=== PATIENT | male | born 2000 | race Caucasian/White ===

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

== ENCOUNTER → 2020-03-12 | Outpatient (CLI) | payer OTHER ==
--- NOTE | 2020-03-12 19:09 | US ---
EXAMINATION TYPE: US scrotum with doppler. DATE OF EXAM: 03/12/2020 COMPARISON: NONE CLINICAL HISTORY: 19-year-old male N45.1 epididymitis. Pain x 3 weeks. TECHNIQUE: Grayscale and color Doppler Duplex imaging performed of the scrotum. FINDINGS: EXAM MEASUREMENTS: TESTICLES: Right Testicle: 5.1 x 3.0 x 2.6 cm Left Testicle: 5.0 x 2.9 x 2.7 cm EPIDIDYMIS HEAD: Right Epididymis: 0.8 x 1.4 x 1.6 cm. Tiny 3 mm complex area probably a tiny spermatocele. Left Epididymis: 0.7 x 1.0 x 0.8 cm. Difficult to visualize clearly. Doppler performed to assess for testicular vascularity; bilateral color flow and waveforms are seen. Presence of hydroceles: Right measures 2.0 x 0.9 x 1.1 cm. Left measures 1.0 x 1.3 x 1.5 cm. Presence of varicoceles: None seen. Skin thickness measures 10 mm. IMPRESSION: 1. Scrotal skin thickening, edema versus cellulitis. 2. Small bilateral hydroceles, right greater than left. 3. No sonographic evidence for testicular torsion. No abnormal hyperemia or staci heterogeneity of th e epididymis to clearly indicate epididymitis at this time.
== END | disposition home or self-care (01) ==
LOC: RADUSWWP 16:56
PROVIDERS: ATTEND Family Medicine
DX: R23.4 Changes in skin texture (principal); N43.3 Hydrocele, unspecified; N45.1 Epididymitis
CPT/HCPCS: 76870; 93975

== ENCOUNTER → 2020-07-10 | Outpatient (CLI) | payer OTHER ==
--- NOTE | 2020-07-10 23:30 | XR ---
EXAMINATION TYPE: XR Hip Complete RT DATE OF EXAM: 07/10/2020 CLINICAL HISTORY: Right hip pain TECHNIQUE: AP and frogleg views of the right hip are obtained. COMPARISON: None. FINDINGS: There is no acute fracture/dislocation evident in the right hip. The joint space in the r ight hip appears within normal limits. There is approximately 5 mm periosteal elevation along the rig ht lateral upper femur and this could be due to effusion or hematoma. Please correlate with history o f trauma or fall. Follow-up x-rays of the right hip is recommended.. IMPRESSION: Effusion versus hematoma along the lateral proximal right femoral shaft may be related tr auma. Please correlate clinically. Follow-up x-rays is recommended.
--- NOTE | 2020-07-10 23:35 | XR ---
EXAMINATION TYPE: XR sacroiliac joint comp BILAT DATE OF EXAM: 07/10/2020 COMPARISON: None. HISTORY: Right hip pain 4 views of the pelvis/sacroiliac joints were obtained. Images demonstrate no evidence of fracture or dislocation. No significant hip joint space narrowing s een. Sacroiliac joints are within normal limits. IMPRESSION: 1. No acute fracture.
--- NOTE | 2020-07-11 07:39 | XR ---
EXAMINATION TYPE: XR knee complete RT DATE OF EXAM: 07/10/2020 CLINICAL HISTORY: pain TECHNIQUE: Three views of the right knee are obtained. COMPARISON: None. FINDINGS: There is no acute fracture/dislocation. The tri-compartment joint spaces appear within no rmal limits. The overlying soft tissue appears unremarkable. IMPRESSION: There is no acute fracture or dislocation.ICD 10 NO FRACTURE, INITIAL EVALUATION
== END | disposition home or self-care (01) ==
LOC: RADXRMAIN 15:51
PROVIDERS: ATTEND Family Medicine
DX: M25.551 Pain in right hip (principal); M25.561 Pain in right knee
CPT/HCPCS: 72202; 73502

== ENCOUNTER → 2022-05-26 | Outpatient (CLI) | payer OTHER ==
--- NOTE | 2022-05-26 15:40 | XR ---
EXAMINATION TYPE: XR ankle complete LT DATE OF EXAM: 05/26/2022 CLINICAL HISTORY: Pain after recent fall injury. TECHNIQUE: Frontal, lateral and oblique images of the left ankle are obtained. COMPARISON: None. FINDINGS: There is no acute fracture/dislocation evident in the left ankle. The ankle mortise appea rs within normal limits. The overlying soft tissue appears unremarkable. IMPRESSION: There is no acute fracture or dislocation in the left ankle.
== END | disposition home or self-care (01) ==
LOC: RADXRMAIN 15:19
PROVIDERS: ATTEND Family Medicine
DX: M25.572 Pain in left ankle and joints of left foot (principal)

== ENCOUNTER 2023-03-20 12:47 | Emergency (ER) | payer BC, OTHER ==
[2023-03-20 13:33] VITALS: BP 103/61; PULSE 79; RESP 20; TEMP 97.9
--- NOTE | 2023-03-20 13:45 | XR ---
Left foot. HISTORY: Pain following trauma. COMPARISON: None TECHNIQUE: 3 views left foot were obtained. There is a nondisplaced fracture of the distal metaphysis of the fifth metatarsal. The fracture does not appear to involve the articular surface. The remaining osseous structures are intact. There is no soft tissue abnormality. IMPRESSION: Nondisplaced fracture of the fifth metatarsal.
--- NOTE | 2023-03-20 14:07 | ED ---
Lower Extremity Injury HPI - General Chief Complaint: Extremity Injury, Lower Stated Complaint: L foot injury Time Seen by Provider: 03/20/23 13:19 Source: patient, family, RN notes reviewed Mode of arrival: wheelchair Limitations: no limitations - History of Present Illness Initial Comments: 22-year-old male presents emergency Department chief complaint of left foot injury. Patient states he misstepped states he rolled IV has pain along the lateral portion by his fifth digit of his left foot. - Related Data Home Medications Medication Instructions Recorded Confirmed Albuterol Sulfate [Proair Hfa] 1 - 2 puff INHALATION Q6HR PRN 05/16/14 06/28/15 Cetirizine HCl [Zyrtec] 10 mg PO DAILY 05/16/14 06/28/15 Melatonin 3 mg PO HS 05/16/14 06/28/15 Mometasone/Formoterol [Dulera 200 2 puff INHALATION BID 05/16/14 06/28/15 Mcg/5 Mcg Inhaler] Montelukast Chew [Singulair Chew] 20 mg PO DAILY 05/16/14 06/28/15 Triamcinolone Acetonide [Nasacort] 1 spray NASAL DAILY 05/16/14 06/28/15 raNITIdine HCL [Zantac] 150 mg PO BID 05/16/14 06/28/15 Multivitamins, Thera [Multivitamin] 1 tab PO DAILY 06/28/15 06/28/15 Allergies Allergy/AdvReac Type Severity Reaction Status Date / Time peanut Allergy Nausea & Verified 10/19/21 03:41 Vomiting & Diarrhea Review of Systems ROS Statement: Those systems with pertinent positive or pertinent negative responses have been documented in the HPI. ROS Other: All systems not noted in ROS Statement are negative. Past Medical History Past Medical History: Asthma, GERD/Reflux Additional Past Medical History / Comment(s): SEASONAL ALLERGIES History of Any Multi-Drug Resistant Organisms: MRSA Date of last positivie culture/infection: 04/2014 MDRO Source:: right lung Past Surgical History: Appendectomy, Ear Surgery Additional Past Surgical History / Comment(s): lung biopsy Past Psychological History: ADD/ADHD Smoking Status: Never smoker Past Alcohol Use History: None Reported Past Drug Use History: None Reported General Exam Limitations: no limitations General appearance: alert, in no apparent distress Head exam: Present: atraumatic, normocephalic, normal inspection Respiratory exam: Present: normal lung sounds bilaterally. Absent: respiratory distress, wheezes, rales, rhonchi, stridor Cardiovascular Exam: Present: regular rate, normal rhythm, normal heart sounds. Absent: systolic murmur, diastolic murmur, rubs, gallop, clicks Extremities exam: Present: other (Left foot tenderness to the distal fifth metatarsal region, mild swelling noted) Course Vital Signs 03/20/23 13:16 Temperature 97.9 F Pulse Rate 79 Respiratory 20 Rate Blood Pressure 103/61 O2 Sat by Pulse 98 Oximetry Procedures - Orthopedic Splinting/Casting Injury #1 Side: left Lower Extremity Injury Location: short leg, foot Lower Extremity Immobilizer: posterior splint, synthetic pre-padded splint Other Orthopedic Equipment: crutches Medical Decision Making - Medical Decision Making Was pt. sent in by a medical professional or institution ([facility], MANAGER CULTURE, urgent care, hospital, or half-way...) When possible be specific @ -No Did you speak to anyone other than the patient for history (EMS, parent, family, police, friend...)? What history was obtained from this source @ -No Did you review nursing and triage notes (agree or disagree)? Why? @ -I reviewed and agree with nursing and triage notes Were old charts reviewed (outside hosp., previous admission, EMS record, old EKG, old radiological studies, urgent care reports/EKG's, half-way records)? Report findings @ -No old charts were reviewed Differential Diagnosis (chest pain, altered mental status, abdominal pain women, abdominal pain men, vaginal bleeding, weakness, fever, dyspnea, syncope, headache, dizziness, GI bleed, back pain, seizure, CVA, palpatations, mental health, musculoskeletal)? @ -Left foot sprain, foot fracture EKG interpreted by me (3pts min.). @ -None X-rays interpreted by me (1pt min.). @ -X-ray left foot showing distal fifth metatarsal fracture CT interpreted by me (1pt min.). @ -None done U/S interpreted by me (1pt. min.). @ -None done What testing was considered but not performed or refused? (CT, X-rays, U/S, labs)? Why? @ -None What meds were considered but not given or refused? Why? @ -None Did you discuss the management of the patient with other professionals (professionals i.e. , PA, MANAGER CULTURE, lab, RT, psych nurse, rn social services, custom wood stair builder, teacher, personal banking officer, shelter case manager)? Give summary @ -No Was smoking cessation discussed for >3mins.? @ -No Was critical care preformed (if so, how long)? @ -No Were there social determinants of health that impacted care today? How? (Homelessness, low income, unemployed, alcoholism, drug addiction, transportation, low edu. Level, literacy, decrease access to med. care, usp, rehab)? @ -No Was there de-escalation of care discussed even if they declined (Discuss DNR or withdrawal of care, Hospice)? DNR status @ -No What co-morbidities impacted this encounter? (DM, HTN, Smoking, COPD, CAD, Cancer, CVA, ARF, Chemo, Hep., AIDS, mental health diagnosis, sleep apnea, mor bid obesity)? @ -None Was patient admitted / discharged? Hospital course, mention meds given and route, prescriptions, significant lab abnormalities, going to OR and other pertinent info. @ -[Discharge patient will foot was splinted after x-ray shows fifth metatarsal fracture. Patient was given crutches will follow-up with orthopedics. Undiagnosed new problem with uncertain prognosis? @ -No Drug Therapy requiring intensive monitoring for toxicity (Heparin, Nitro, Insulin, Cardizem)? @ -No Were any procedures done? @ -No Diagnosis/symptom? @ -[Left foot fracture Acute, or Chronic, or Acute on Chronic? @ -Acute Uncomplicated (without systemic symptoms) or Complicated (systemic symptoms)? @ -[Uncomplicated Side effects of treatment? @ -No Exacerbation, Progression, or Severe Exacerbation? @ -No Poses a threat to life or bodily function? How? (Chest pain, [place], [place], pneumonia, PE, COPD, DKA, ARF, appy, cholecystitis, CVA, Diverticulitis, Homicidal, Suicidal, threat to staff... and all critical care pts) @ -No Disposition Clinical Impression: Nondisplaced fracture of fifth left metatarsal bone Disposition: HOME SELF-CARE Condition: Stable Instructions (If sedation given, give patient instructions): Foot Fracture in Adults (ED) Additional Instructions: Please return to the Emergency Department if symptoms worsen or any other concerns. Is patient prescribed a controlled substance at d/c from ED?: No Referrals: Tim Haynes DO [Primary Care Provider] - 1-2 days Alessio Abbasi MD [STAFF PHYSICIAN] - 1-2 days Time of Disposition: 14:07
== END 2023-03-20 14:28 | disposition home or self-care (01) ==
LOC: EC 12:47
DX: S92.355A Nondisplaced fracture of fifth metatarsal bone, left foot, initial encounter for closed fracture (principal); J45.909 Unspecified asthma, uncomplicated; K21.9 Gastro-esophageal reflux disease without esophagitis; Z79.51 Long term (current) use of inhaled steroids; Z79.899 Other long term (current) drug therapy; Z91.018 Allergy to other foods; W18.49XA Other slipping, tripping and stumbling without falling, initial encounter
CPT/HCPCS: 29515; 99283

== ENCOUNTER 2023-08-10 16:47 | Emergency (ER) | payer BC ==
[2023-08-10 17:29] VITALS: RESP 18; TEMP 98.3
--- NOTE | 2023-08-10 17:43 | ED ---
General Adult HPI - General Source: patient, RN notes reviewed Mode of arrival: ambulatory Limitations: no limitations <Selene Steward - Last Filed: 08/10/23 17:41> - General Source: RN notes reviewed <Mark Anthony Huggins - Last Filed: 08/10/23 22:54> - General Chief complaint: Chest Pain Stated complaint: Chest pain, cough Time Seen by Provider: 08/10/23 17:02 - History of Present Illness Initial comments: Quick noteis a 23-year-old male presents emergency room chief complaint of chest pain over the past month. States that this pain has been persistent now for the past week. States that the pain is increased with coughing. He denies dysuria or fevers, palpitations, dizziness, lightheadedness. Denies history of blood clots or clotting disorders. States that he has been very anxious over the past few weeks as well. (Selene Steward) 23-year-old male presenting to the ED with chief complaint of chest pain. Has been ongoing for the past month however over the past week he reports pain has become more frequent in nature. Pain affects the left side of his chest. Pain does not radiate. States pain is worse with movement and cough. Denies fever or chills, congestion, shortness of breath, cough, sore throat. Denies family history of early cardiac . Is not a smoker. No other complaints at this time. (Mark Anthony Huggins) - Related Data Home Medications Medication Instructions Recorded Confirmed Albuterol Sulfate [Proair Hfa] 1 - 2 puff INHALATION Q6HR PRN 05/16/14 06/28/15 Cetirizine HCl [Zyrtec] 10 mg PO DAILY 05/16/14 06/28/15 Melatonin 3 mg PO HS 05/16/14 06/28/15 Mometasone/Formoterol [Dulera 200 2 puff INHALATION BID 05/16/14 06/28/15 Mcg/5 Mcg Inhaler] Montelukast Chew [Singulair Chew] 20 mg PO DAILY 05/16/14 06/28/15 Triamcinolone Acetonide [Nasacort] 1 spray NASAL DAILY 05/16/14 06/28/15 raNITIdine HCL [Zantac] 150 mg PO BID 05/16/14 06/28/15 Multivitamins, Thera [Multivitamin] 1 tab PO DAILY 06/28/15 06/28/15 Allergies Allergy/AdvReac Type Severity Reaction Status Date / Time peanut Allergy Nausea & Verified 10/19/21 03:41 Vomiting & Diarrhea Review of Systems ROS Other: All systems not noted in ROS Statement are negative. <Selene Steward - Last Filed: 08/10/23 17:41> ROS Other: All systems not noted in ROS Statement are negative. <Mark Anthony Huggins - Last Filed: 08/10/23 22:54> ROS Statement: Those systems with pertinent positive or pertinent negative responses have been documented in the HPI. Past Medical History Past Medical History: Asthma, GERD/Reflux Additional Past Medical History / Comment(s): SEASONAL ALLERGIES History of Any Multi-Drug Resistant Organisms: MRSA Date of last positivie culture/infection: 04/2014 MDRO Source:: right lung Past Surgical History: Appendectomy, Ear Surgery Additional Past Surgical History / Comment(s): lung biopsy Past Psychological History: ADD/ADHD Smoking Status: Never smoker Past Alcohol Use History: None Reported Past Drug Use History: None Reported <Selene Steward - Last Filed: 08/10/23 17:41> General Exam Limitations: no limitations <Selene Steward - Last Filed: 08/10/23 17:41> General appearance: alert, in no apparent distress Eye exam: Present: normal appearance Neck exam: Present: normal inspection Respiratory exam: Present: normal lung sounds bilaterally Cardiovascular Exam: Present: regular rate, normal rhythm GI/Abdominal exam: Present: soft, normal bowel sounds. Absent: distended, tenderness, guarding, rebound, rigid Neurological exam: Present: alert, oriented X3 Skin exam: Present: warm, dry <Mark Anthony Huggins - Last Filed: 08/10/23 22:54> - General Exam Comments Initial Comments: Visual Physical Exam Vital signs reviewed General: Well-appearing, nontoxic, no acute distress. Head: Normocephalic, atraumatic Eyes: PERRLA, EOMI ENT: Airway patent Chest: Nonlabored breathing Skin: No visual rash, normal skin tone Neuro: Alert and oriented 3 Musculoskeletal: No gross abnormalities (Selene Steward) Course Vital Signs 08/10/23 17:26 Temperature 98.3 F Pulse Rate 77 Respiratory 18 Rate Blood Pressure 135/78 O2 Sat by Pulse 98 Oximetry Medical Decision Making <Selene Steward - Last Filed: 08/10/23 17:41> - Lab Data Result diagrams: 08/10/23 18:29 08/10/23 18:29 <Mark Anthony Huggins - Last Filed: 08/10/23 22:54> - Medical Decision Making I completed the quick note portion of this chart signed Selene Steward PA-C (Selene Steward) Was pt. sent in by a medical professional or institution (VARINDER Harden, PAYROLL CLERK, urgent care, hospital, or group home...) When possible be specific @ -No Did you speak to anyone other than the patient for history (EMS, parent, family, police, friend...)? What history was obtained from this source @ -No Did you review nursing and triage notes (agree or disagree)? Why? @ -I reviewed and agree with nursing and triage notes Were old charts reviewed (outside hosp., previous admission, EMS record, old EKG, old radiological studies, urgent care reports/EKG's, group home records)? Report findings @ -No old charts were reviewed Differential Diagnosis (chest pain, altered mental status, abdominal pain women, abdominal pain men, vaginal bleeding, weakness, fever, dyspnea, syncope, headache, dizziness, GI bleed, back pain, seizure, CVA, palpatations, mental health, musculoskeletal)? @ -Differential Chest Pain: Stable Angina, Unstable Angina, STEMI, NSTEMI Aortic Dissection, Pneumothorax, Musculoskeletal, Esophageal Spasm GERD, Cholecystitis, Pancreatitis, Zoster, this is not meant to be an all-inclusive list. EKG interpreted by me (3pts min.). @ -EKG interpreted me showing diffuse ST elevations at a rate of 85 bpm, [place] 158, QRS 103, QT/QTc 344/387. ST elevations likely early repolarization. X-rays interpreted by me (1pt min.). @ -Chest x-ray interpreted me which revealed no evidence of acute finding. CT interpreted by me (1pt min.). @ -None done U/S interpreted by me (1pt. min.). @ -None done What testing was considered but not performed or refused? (CT, X-rays, U/S, labs)? Why? @ -None What meds were considered but not given or refused? Why? @ -None Did you discuss the management of the patient with other professionals (professionals i.e. , PA, PAYROLL CLERK, lab, RT, psych nurse, case management social worker, java web engineer, teacher, business enterprise officer, case repairer)? Give summary @ -No Was smoking cessation discussed for >3mins.? @ -No Was critical care preformed (if so, how long)? @ -No Were there social determinants of health that impacted care today? How? (Homele ssness, low income, unemployed, alcoholism, drug addiction, transportation, low edu. Level, literacy, decrease access to med. care, senior care, rehab)? @ -No Was there de-escalation of care discussed even if they declined (Discuss DNR or withdrawal of care, Hospice)? DNR status @ -No What co-morbidities impacted this encounter? (DM, HTN, Smoking, COPD, CAD, Cancer, CVA, ARF, Chemo, Hep., AIDS, mental health diagnosis, sleep apnea, morbid obesity)? @ -None Was patient admitted / discharged? Hospital course, mention meds given and route, prescriptions, significant lab abnormalities, going to OR and other pertinent info. @ -Discharge 23-year-old male presented to the ED with complaints of chest pain for the past month. Laboratory studies reviewed. Labs including CBC CMP unremarkable. D- dimer less than 0.17. Troponin x 2 undetectable. EKG showed a normal sinus rhythm with a repolarization. At this time patient has a heart score of 1. Unlikely cardiac in nature. Discharged home in stable condition with instructions to closely follow-up with his PCP. Discussed return precautions with patient who verbalized agreement. Undiagnosed new problem with uncertain prognosis? @ -No Drug Therapy requiring intensive monitoring for toxicity (Heparin, Nitro, Insulin, Cardizem)? @ -No Were any procedures done? @ -No Diagnosis/symptom? @ -Chest pain Acute, or Chronic, or Acute on Chronic? @ -Acute Uncomplicated (without systemic symptoms) or Complicated (systemic symptoms)? @ -Uncomplicated Side effects of treatment? @ -No Exacerbation, Progression, or Severe Exacerbation? @ -No Poses a threat to life or bodily function? How? (Chest pain, [place], [place], pneumonia, PE, COPD, DKA, ARF, appy, cholecystitis, CVA, Diverticulitis, Homicidal, Suicidal, threat to staff... and all critical care pts) @ -No (Mark Anthony Huggins) - Lab Data Lab Results 08/10/23 08/10/23 08/10/23 Range/Units 18:29 18:29 18:29 WBC 8.2 (3.8-10.6) k/uL RBC 5.36 (4.30-5.90) m/uL Hgb 16.1 (13.0-17.5) gm/dL Hct 47.3 (39.0-53.0) % MCV 88.2 (80.0-100.0) fL MCH 30.1 (25.0-35.0) pg MCHC 34.1 (31.0-37.0) g/dL RDW 12.4 (11.5-15.5) % Plt Count 310 (150-450) k/uL MPV 7.3 Neutrophils % 65 % Lymphocytes % 24 % Monocytes % 6 % Eosinophils % 3 % Basophils % 1 % Neutrophils # 5.4 (1.3-7.7) k/uL Lymphocytes # 1.9 (1.0-4.8) k/uL Monocytes # 0.5 (0-1.0) k/uL Eosinophils # 0.2 (0-0.7) k/uL Basophils # 0.0 (0-0.2) k/uL PT 10.9 (10.0-12.5) sec INR 1.0 (<1.2) APTT 27.8 (22.0-30.0) sec D-Dimer <0.17 (<0.60) mg/L FEU Sodium 137 (137-145) mmol/L Potassium 4.3 (3.5-5.1) mmol/L Chloride 101 (98-107) mmol/L Carbon Dioxide 29 (22-30) mmol/L Anion Gap 7 mmol/L BUN 13 (9-20) mg/dL Creatinine 0.74 (0.66-1.25) mg/dL Est GFR (CKD-EPI)AfAm >90 (>60 ml/min/1.73 sqM) Est GFR (CKD-EPI)NonAf >90 (>60 ml/min/1.73 sqM) Glucose 83 (74-99) mg/dL Calcium 9.5 (8.4-10.2) mg/dL Magnesium 2.0 (1.6-2.3) mg/dL Total Bilirubin 1.2 (0.2-1.3) mg/dL AST 26 (17-59) U/L ALT 36 (4-49) U/L Alkaline Phosphatase 83 (38-126) U/L Troponin I (0.000-0.034) ng/mL Total Protein 7.3 (6.3-8.2) g/dL Albumin 4.9 (3.5-5.0) g/dL Urine Color Urine Appearance (Clear) Urine pH (5.0-8.0) Ur Specific [place] (1.001-1.035) Urine Protein (Negative) Urine Glucose (UA) (Negative) Urine Ketones (Negative) Urine Blood (Negative) Urine Nitrite (Negative) Urine Bilirubin (Negative) Urine Urobilinogen (<2.0) mg/dL Ur Leukocyte Esterase (Negative) 08/10/23 08/10/23 08/10/23 Range/Units 18:29 20:15 21:16 WBC (3.8-10.6) k/uL RBC (4.30-5.90) m/uL Hgb (13.0-17.5) gm/dL Hct (39.0-53.0) % MCV (80.0-100.0) fL MCH (25.0-35.0) pg MCHC (31.0-37.0) g/dL RDW (11.5-15.5) % Plt Count (150-450) k/uL MPV Neutrophils % % Lymphocytes % % Monocytes % % Eosinophils % % Basophils % % Neutrophils # (1.3-7.7) k/uL Lymphocytes # (1.0-4.8) k/uL Monocytes # (0-1.0) k/uL Eosinophils # (0-0.7) k/uL Basophils # (0-0.2) k/uL PT (10.0-12.5) sec INR (<1.2) APTT (22.0-30.0) sec D-Dimer (<0.60) mg/L FEU Sodium (137-145) mmol/L Potassium (3.5-5.1) mmol/L Chloride (98-107) mmol/L Carbon Dioxide (22-30) mmol/L Anion Gap mmol/L BUN (9-20) mg/dL Creatinine (0.66-1.25) mg/dL Est GFR (CKD-EPI)AfAm (>60 ml/min/1.73 sqM) Est GFR (CKD-EPI)NonAf (>60 ml/min/1.73 sqM) Glucose (74-99) mg/dL Calcium (8.4-10.2) mg/dL Magnesium (1.6-2.3) mg/dL Total Bilirubin (0.2-1.3) mg/dL AST (17-59) U/L ALT (4-49) U/L Alkaline Phosphatase (38-126) U/L Troponin I <0.012 <0.012 (0.000-0.034) ng/mL Total Protein (6.3-8.2) g/dL Albumin (3.5-5.0) g/dL Urine Color Colorless Urine Appearance Clear (Clear) Urine pH 6.5 (5.0-8.0) Ur Specific [place] 1.007 (1.001-1.035) Urine Protein Negative (Negative) Urine Glucose (UA) Negative (Negative) Urine Ketones Negative (Negative) Urine Blood Negative (Negative) Urine Nitrite Negative (Negative) Urine Bilirubin Negative (Negative) Urine Urobilinogen <2.0 (<2.0) mg/dL Ur Leukocyte Esterase Negative (Negative) Disposition <Selene Steward - Last Filed: 08/10/23 17:41> Is patient prescribed a controlled substance at d/c from ED?: No Time of Disposition: 22:54 <Mark Anthony Huggins - Last Filed: 08/10/23 22:54> Clinical Impression: Chest pain Disposition: HOME SELF-CARE Condition: Good Instructions (If sedation given, give patient instructions): Chest Pain (ED) Additional Instructions: please return to the Emergency Department if symptoms worsen or any other concerns. Please follow-up with your primary care provider. Referrals: Tim Haynes DO [Primary Care Provider] - 1-2 days
[2023-08-10 18:53] LABS: Basophils % (A) 1 %; Eosinophils # (A) 0.2 k/uL (0-0.7); Eosinophils % (A) 3 %; HCT 47.3 % (39.0-53.0); HGB 16.1 gm/dL (13.0-17.5); Lymphocytes # (A) 1.9 k/uL (1.0-4.8); Lymphocytes % (A) 24 %; MCH 30.1 pg (25.0-35.0); MCHC 34.1 g/dL (31.0-37.0); MCV 88.2 fL (80.0-100.0); Mean Platelet Volume 7.3; Monocytes # (A) 0.5 k/uL (0-1.0); Monocytes % (A) 6 %; Neutrophils # (A) 5.4 k/uL (1.3-7.7); Neutrophils % (A) 65 %; Platelet Count 310 k/uL (150-450); RBC 5.36 m/uL (4.30-5.90); RDW 12.4 % (11.5-15.5); WBC 8.2 k/uL (3.8-10.6)
[2023-08-10 19:02] LABS: ALT 36 U/L (4-49); AST 26 U/L (17-59); African American GFR (CKD) >90 (>60 ml/min/1.73 sqM); Albumin 4.9 g/dL (3.5-5.0); Alkaline Phosphatase 83 U/L (38-126); Anion Gap 7 mmol/L; Blood Urea Nitrogen 13 mg/dL (9-20); Calcium 9.5 mg/dL (8.4-10.2); Carbon Dioxide 29 mmol/L (22-30); Chloride 101 mmol/L (98-107); Glucose 83 mg/dL (74-99); Non-African American GFR(CKD) >90 (>60 ml/min/1.73 sqM); Potassium 4.3 mmol/L (3.5-5.1); Sodium 137 mmol/L (137-145); Total Bilirubin 1.2 mg/dL (0.2-1.3); Total Protein 7.3 g/dL (6.3-8.2)
[2023-08-10 19:12] LABS: Partial Thromboplastin Time 27.8 sec (22.0-30.0); Prothrombin Time 10.9 sec (10.0-12.5)
--- NOTE | 2023-08-10 20:32 | XR ---
EXAMINATION TYPE: XR chest 2V DATE OF EXAM: 08/10/2023 7:21 PM CLINICAL INDICATION:Male, 23 years old with history of chest pain; [facility] COMPARISON: None TECHNIQUE: XR chest 2V Frontal and lateral views of the chest. FINDINGS: Lungs/Pleura: There is no evidence of pleural effusion, focal consolidation, or pneumothorax. Pulmonary vascularity: Unremarkable. Heart/mediastinum: Cardiomediastinal silhouette is unremarkable. Musculoskeletal: No acute osseous pathology. IMPRESSION: No acute cardiopulmonary disease/process.
[2023-08-10 20:51] LABS: Appearance,Urine Clear (Clear); Bilirubin,Urine Negative (Negative); Blood,Urine Negative (Negative); Color,Urine Colorless; Glucose,Urine (UA) Negative (Negative); Ketones,Urine Negative (Negative); Leukocyte Esterase,Urine Negative (Negative); Nitrite,Urine Negative (Negative); PH, Urine 6.5 (5.0-8.0); Protein,Urine Negative (Negative); Specific Gravity,Urine 1.007 (1.001-1.035); Urobilinogen,Urine <2.0 mg/dL (<2.0)
[2023-08-10 23:12] VITALS: BP 126/76; PULSE 70
== END 2023-08-10 23:12 | disposition home or self-care (01) ==
LOC: EC 16:47
DX: R07.89 Other chest pain (principal); Z91.010 Allergy to peanuts
CPT/HCPCS: 36415; 71046; 80053; 81003; 83735; 84484; 85025; 85379; 85610; 85730; 93005; 99285